=== PATIENT | female | born 1950 | race Caucasian/White ===

== ENCOUNTER 2017-05-28 10:44 | Emergency (ER) | payer OTHER ==
[~2017-05-28] VITALS: Ht 167.6 cm; Wt 65.8 kg
[2017-05-28 10:46] VITALS: BP 132/81
[2017-05-28] MEDS ORDERED: DOXYCYCLINE 10100 MG PO (11:53)
[2017-05-28] MEDS ORDERED: PERCOCET PO (11:53)
[2017-05-28] MEDS ORDERED: ROBAXIN 750 MG750 M1 PO (11:54)
[2017-05-28] MEDS ORDERED: CARAFATE 1 GM TA1 G1 PO (11:55)
[2017-05-28] MEDS ORDERED: VICODIN ES 7.51 EACH PO (11:55)
[2017-05-28 11:56] LABS: HEMATOCRIT 36.7 % (37.0-47.0); HEMOGLOBIN 11.7 gm/dL (12.0-15.0); MCH 27.8 pg (26.0-34.0); MCHC 31.9 g/dL (28.0-37.0); MCV 87.1 fL (80.0-100.0); RBC 4.21 mil/uL (4.20-5.00); RDW 14.6 % (10.5-14.5); WBC 15.5 thou/uL (4.0-11.0)
[2017-05-28] MEDS ORDERED: NEXIUM40 MG PO (11:56)
[2017-05-28] MEDS ORDERED: ESTRADIOL 1 MG T1 M1 PO (11:56)
[2017-05-28] MEDS ORDERED: LASIX 20 MG TAB20 MG PO (11:56)
[2017-05-28] MEDS ORDERED: WELLBUTRIN XL300 MG PO (11:57)
[2017-05-28] MEDS ORDERED: ALPRAZOLAM 0.50.5 MG PO (11:57)
[2017-05-28 12:04] LABS: CALCIUM 9.5 mg/dL (8.5-10.1); CREATININE 0.7 mg/dL (0.6-1.0); POTASSIUM 3.7 mmol/L (3.5-5.1)
[2017-05-28 13:36] VITALS: BP 144/88
== END 2017-05-28 14:02 | disposition home or self-care (01) ==
LOC: ER 10:44 → EROBS 12:52 → ER 14:02
PROVIDERS: Emergency Medicine
DX: L03.115 Cellulitis of right lower limb (principal); R79.82 Elevated C-reactive protein (CRP); I10 Essential (primary) hypertension; F41.9 Anxiety disorder, unspecified; Z89.611 Acquired absence of right leg above knee; Z88.0 Allergy status to penicillin; Z88.1 Allergy status to other antibiotic agents